=== PATIENT | male | born 1950 | race Caucasian/White ===

== ENCOUNTER 2017-10-28 22:11 | Emergency (ER) | payer MEDICARE, OTHER ==
[2017-10-28 22:22] VITALS: BP 167/92
--- NOTE | 2017-10-28 23:18 | EDM.PDOC ---
ED HPI GENERAL MEDICAL PROBLEM - General Chief Complaint: Upper Extremity Injury/Pain Stated Complaint: ARM PAIN Time Seen by Provider: 10/28/17 22:58 Source of Information: Reports: Patient History Limitations: Reports: No Limitations - History of Present Illness INITIAL COMMENTS - FREE TEXT/NARRATIVE: The patient states that he has some routine blood work drawn at the [facility] this past 10/20/2017. The blood was drawn from the proximal left forearm, volar aspect. He states that the scroll assembler appeared to be inexperienced. He states her hands shook while she was drawing the blood and that she did not allow him to apply pressure to the puncture site immediately after the blood draw. By the time he got home, there was a bruise to the area. He now presents because he noticed some discoloration over the inferolateral aspect of his left proximal forearm, as well as changes in color to the bruise on the volar aspect of his forearm. He is concerned that there might be some sort of an infection or necrosis going on. Left Arm Pain Score (Numeric/FACES): 2 - Related Data Allergies Allergy/AdvReac Type Severity Reaction Status Date / Time No Known Allergies Allergy Verified 10/28/17 23:36 Home Meds: Home Meds Pseudoephedrine [Sudogest] 30 mg PO ASDIRECTED PRN 07/08/16 [History] Hydrocodone/Acetaminophen [Hydrocodon-Acetaminophen 5-325] 1 each PO BID PRN [History] Past Medical History Genitourinary History: Reports: BPH Musculoskeletal History: Reports: Fracture (mandible) - Past Surgical History HEENT Surgical History: Reports: Tonsillectomy, Other (See Below) (Mandible plate. Hair transplant.) Social & Family History - Tobacco Use Smoking Status *Q: Never Smoker Second Hand Smoke Exposure: No - Caffeine Use Caffeine Use: Reports: Coffee - Alcohol Use Days Per Week of Alcohol Use: 0 - Recreational Drug Use Recreational Drug Use: No - Living Situation & Occupation Living situation: Reports: , Other Review of Systems - Review of Systems Review Of Systems: ROS reveals no pertinent complaints other than HPI. ED EXAM, GENERAL - Physical Exam Exam: See Below Exam Limited By: No Limitations General Appearance: Alert, WD/WN, No Apparent Distress Extremities: Other (There is an ecchymosis to the volar aspect of the proximal left forearm, with some biliverdinous changes to the periphery. This is mildly tender to palpation. There is also a subtle ecchymosis over the left proximal ulna consistent with extravasation of liquefied hematoma. Neurovascular status of the left upper extremity is intact.) Course - Vital Signs Last Recorded V/S: Last Vital Signs Temp 36.8 C 10/28/17 22:18 Pulse 95 10/28/17 22:18 Resp 20 10/28/17 22:18 BP 167/92 H 10/28/17 22:18 Pulse Ox 98 10/28/17 22:18 - Re-Assessments/Exams Free Text/Narrative Re-Assessment/Exam: 10/28/17 23:14 I reassured the patient that what he sees on his left forearm is the result of a hematoma with extravasation of liquefied blood along fascial planes due to gravity, resulting in the appearance of discoloration on the underside of his forearm. I see no signs of infection or necrosis. Departure - Departure Time of Disposition: 23:15 Disposition: Home, Self-Care 01 Condition: Good Clinical Impression: Traumatic hematoma of left forearm - Discharge Information Instructions: Hematoma, [id number] Referrals: Madhuri Paulino DO [Primary Care Provider] - Forms: ED Department Discharge Additional Instructions: You were seen in the emergency room for discoloration of your left forearm following a blood draw a week ago. On examination, it appears that you have a hematoma, the result of blood pooling under your skin. There is no sign of infection or necrosis. Unfortunately, there are no medicines that can get rid of the hematoma - it will liquefy and get absorbed on its own. Applying heat to the area MAY help to liquefy the hematoma. Follow-up with your PCP, Dr. Paulino, at the [facility], as needed. If any other problems, please do not hesitate to return to the ER.
== END 2017-10-28 23:32 | disposition home or self-care (01) ==
LOC: JD.ED 22:11
DX: S50.12XA Contusion of left forearm, initial encounter (principal); X58.XXXA Exposure to other specified factors, initial encounter
CPT/HCPCS: 99282; 99283

== ENCOUNTER 2018-11-27 11:46 | Emergency (ER) | payer MEDICARE, OTHER ==
[2018-11-27 12:00] VITALS: BP 167/102
[2018-11-27] MEDS: Sodium Chloride 0.9% 10 ML Syringe FLUSH PRN (13:53)
[2018-11-27] MEDS: Iopamidol 755 Mg/ML 200 ML Bottle IV ONE (13:53)
--- NOTE | 2018-11-27 14:22 | EDM.PDOC ---
ED HPI GENERAL MEDICAL PROBLEM - General Chief Complaint: ENT Problem Stated Complaint: CHEMO MONDAY,PAIN, THROAT PAIN CANT SWALLOW Time Seen by Provider: 11/27/18 11:59 Source of Information: Reports: Patient History Limitations: Reports: No Limitations - History of Present Illness INITIAL COMMENTS - FREE TEXT/NARRATIVE: The patient presents with difficulty swallowing. This started this morning. He had chemo for prostate cancer with mets last . This is is first round of chemo. He has no fever or chills. He has a sore throat. He has no chest pain or shortness of breath. He does have a rash to the left side of his neck. That was there a couple days ago. He can only swallow sips of water. He has no abdominal pain, nausea or vomiting. Onset: Gradual Duration: Hour(s): Location: Reports: Other (throat) Quality: Reports: Sharp Severity: Mild Improves with: Reports: None Worsens with: Reports: None Associated Symptoms: Reports: No Other Symptoms - Related Data Allergies Allergy/AdvReac Type Severity Reaction Status Date / Time No Known Allergies Allergy Verified 11/27/18 12:00 Home Meds: Home Meds Calcium Carb & Citrate/Vit D3 [Calcium + D3 ER Tablet] 1 tab PO DAILY 11/27/18 [ History] Diphenhyd/Lidocaine/Nystatin [First-Bxn Mouthwash] 5 ml PO TID PRN #237 ml 11/27 [Rx] Past Medical History - Past Health History Medical/Surgical History: Denies Medical/Surgical History Gastrointestinal History: Reports: Other (See Below) Other Gastrointestinal History: abdominal pain Genitourinary History: Reports: BPH Musculoskeletal History: Reports: Fracture Endocrine/Metabolic History: Reports: Other (See Below) Other Endocrine/Metabolic History: hair transplant Oncologic (Cancer) History: Reports: Bone, Prostate, Other (See Below) Other Oncologic History: lymphnodes - Past Surgical History HEENT Surgical History: Reports: Tonsillectomy Musculoskeletal Surgical History: Reports: Other (See Below) Other Musculoskeletal Surgeries/Procedures:: mandible fracture Social & Family History - Tobacco Use Smoking Status *Q: Never Smoker - Caffeine Use Caffeine Use: Reports: None - Recreational Drug Use Recreational Drug Use: No - Living Situation & Occupation Living situation: Reports: , Other ED ROS ENT - Review of Systems Review Of Systems: See Below Constitutional: Reports: No Symptoms HEENT: Reports: Throat Pain (trouble swallowing) Respiratory: Reports: No Symptoms Cardiovascular: Reports: No Symptoms Endocrine: Reports: No Symptoms GI/Abdominal: Reports: No Symptoms : Reports: No Symptoms Musculoskeletal: Reports: No Symptoms Skin: Reports: No Symptoms ED EXAM, ENT - Physical Exam Exam: See Below Exam Limited By: No Limitations General Appearance: Alert, No Apparent Distress Ears: Normal External Exam Nose: Normal Inspection Mouth/Throat: Other (Mild edema with erythema and multiple white patches to the back of his throat and uvula) Head: Atraumatic, Normocephalic Neck: Normal Inspection, Supple, Non-Tender Respiratory/Chest: No Respiratory Distress, Lungs Clear, Normal Breath Sounds Cardiovascular: Regular Rate, Rhythm, No Edema, No Murmur GI/Abdominal: Soft, Non-Tender, No Organomegaly, No Mass Course - Vital Signs Last Recorded V/S: Last Vital Signs Temp 98.0 F 11/27/18 11:58 Pulse 100 11/27/18 11:58 Resp 16 11/27/18 11:58 BP 167/102 H 11/27/18 11:58 Pulse Ox 95 11/27/18 11:58 - Orders/Labs/Meds Orders: Active Orders 24 hr Category Date Time Status Peripheral IV Care [RC] . DIRECTED Care 11/27/18 12:20 Active CULTURE STREP A CONFIRMATION [] Stat Lab 11/27/18 12:30 Results CULTURE THROAT [] Stat Lab 11/27/18 12:30 Results STREP SCRN A RAPID W CULT CONF [] Stat Lab 11/27/18 12:30 Results Sodium Chloride 0.9% [Normal Saline] 1,000 ml Med 11/27/18 12:30 Active IV ASDIRECTED Sodium Chloride 0.9% [Saline Flush] Med 11/27/18 12:18 Active 10 ml FLUSH ASDIRECTED PRN Peripheral IV Insertion Adult [OM.PC] Stat Oth 11/27/18 12:18 Ordered Medication Orders Sodium Chloride (Normal Saline) 1,000 mls @ 125 mls/hr IV ASDIRECTED CHLOE Last Admin: 11/27/18 14:37 Dose: 125 mls/hr Sodium Chloride (Saline Flush) 10 ml FLUSH ASDIRECTED PRN PRN Reason: Keep Vein Open Last Admin: 11/27/18 13:53 Dose: 10 ml Labs: Laboratory Tests 11/27/18 11/27/18 Range/Units 12:25 12:25 WBC 4.07 L (4.23-9.07) K/mm3 RBC 5.18 (4.63-6.08) M/mm3 Hgb 15.1 D (13.7-17.5) gm/L Hct 44.0 (40.1-51.0) % MCV 84.9 (79.0-92.2) fl MCH 29.2 (25.7-32.2) pg MCHC 34.3 (32.2-35.5) g/dl RDW Std Deviation 41.6 (35.1-43.9) fL Plt Count 130 L (163-337) K/mm3 MPV 12.0 (9.4-12.3) fl Neut % (Auto) 57.7 (34.0-67.9) % Lymph % (Auto) 34.4 (21.8-53.1) % Thomas % (Auto) 0.7 L (5.3-12.2) % Eos % (Auto) 1.0 (0.8-7.0) Baso % (Auto) 2.5 H (0.1-1.2) % Neut # (Auto) 2.35 (1.78-5.38) K/mm3 Lymph # (Auto) 1.40 (1.32-3.57) K/mm3 Thomas # (Auto) 0.03 L (0.30-0.82) K/mm3 Eos # (Auto) 0.04 (0.04-0.54) K/mm3 Baso # (Auto) 0.10 H (0.01-0.08) K/mm3 Manual Slide Review Normal smear Sodium 134 L (136-145) mEq/L Potassium 3.8 (3.5-5.1) mEq/L Chloride 101 (98-107) mEq/L Carbon Dioxide 23 (21-32) mEq/L Anion Gap 13.8 (5-15) BUN 19 H (7-18) mg/dL Creatinine 1.1 (0.7-1.3) mg/dL Est Cr Clr Drug Dosing 68.18 mL/min Estimated GFR (MDRD) > 60 (>60) mL/min BUN/Creatinine Ratio 17.3 (14-18) Glucose 105 (80-115) mg/dL Calcium 8.3 L (8.5-10.1) mg/dL Total Bilirubin 2.7 H (0.2-1.0) mg/dL AST 25 (15-37) U/L ALT 40 (16-63) U/L Alkaline Phosphatase 90 (46-116) U/L Total Protein 7.1 (6.4-8.2) g/dl Albumin 3.5 (3.4-5.0) g/dl Globulin 3.6 gm/dL Albumin/Globulin Ratio 1.0 (1-2) Meds: Medications Generic Name Dose Route Start Last Admin Trade Name Freq PRN Reason Stop Dose Admin Sodium Chloride 1,000 mls @ 125 mls/hr 11/27/18 12:30 11/27/18 14:37 Normal Saline IV 125 mls/hr ASDIRECTED CHLOE Administration Sodium Chloride 10 ml 11/27/18 12:18 11/27/18 13:53 Saline Flush FLUSH 10 ml ASDIRECTED PRN Administration Keep Vein Open Discontinued Medications Generic Name Dose Route Start Last Admin Trade Name Freq PRN Reason Stop Dose Admin Fluconazole 150 mg 11/27/18 15:13 Diflucan PO 11/27/18 15:14 ONETIME ONE Hydromorphone HCl 0.5 mg 11/27/18 14:02 11/27/18 14:37 Dilaudid IVPUSH 11/27/18 14:03 0.5 mg ONETIME ONE Administration Iopamidol 80 ml 11/27/18 13:16 11/27/18 13:53 Isovue-370 (76%) IV 11/27/18 13:17 80 ml ONETIME ONE Administration Methylprednisolone Sodium Succinate 125 mg 11/27/18 15:13 Solu-Medrol IVPUSH 11/27/18 15:14 ONETIME ONE - Re-Assessments/Exams Free Text/Narrative Re-Assessment/Exam: 11/27/18 14:30 I ordered an IV saline lock, labs and a CT of the soft tissue of his neck. 11/27/18 14:30 His WBC is a little low at 4.07. His Hgb is normal at 15.1. His Na is 134. His total bili is 2.7. I am waiting for the CT of his neck. 11/27/18 15:[address] shows degenerative change within the cervical spine. No parapharyngeal abnormality is seen. No additional abnormality is seen on CT study of the neck. His strep is negative. I do have a culture pending. 11/27/18 15:14 I will give him a dose of solu-medrol 125mg IV and diflucan 150mg PO. I called Dr Melvin his oncologist at [facility] and he was gone but I talked with his nurse and she said the incidence of mouth sores with this chemo agent he is on is 26% to 53%. She recommended magic mouthwash and a rinse. 11/27/18 15:18 Departure - Departure Time of Disposition: 15:20 Disposition: Home, Self-Care 01 Condition: Good Clinical Impression: Mouth sores - Discharge Information *PRESCRIPTION DRUG MONITORING PROGRAM REVIEWED*: Not Applicable *COPY OF PRESCRIPTION DRUG MONITORING REPORT IN PATIENT VANESSA: Not Applicable Prescriptions: Diphenhyd/Lidocaine/Nystatin [First-Bxn Mouthwash] 5 ml PO TID PRN #237 ml PRN Reason: Pain Referrals: Andrew Sotomayor PA-C [Primary Care Provider] - 1 Week Forms: ED Department Discharge Additional Instructions: Gargle and spit the magic mouthwash 5mls 3times per day as needed for mouth pain. Try to do this before meals. Mix a solution of 1tsp of backing soda, 1 tsp of salt in 8 ounces of water and gargle and spit with a small sip 3 to 4 times per day. I will call you if we need to treat you with more medicine. Please call your oncologist if you have any more problems of if you are not getting better. Please return if you are worse. - My Orders Last 24 Hours: My Active Orders 11/27/18 12:18 Sodium Chloride 0.9% [Saline Flush] 10 ml FLUSH ASDIRECTED PRN Peripheral IV Insertion Adult [OM.PC] Stat 11/27/18 12:20 Peripheral IV Care [RC] . DIRECTED 11/27/18 12:30 CULTURE STREP A CONFIRMATION [RM] Stat CULTURE THROAT [RM] Stat STREP SCRN A RAPID W CULT CONF [RM] Stat Sodium Chloride 0.9% [Normal Saline] 1,000 ml IV ASDIRECTED - Assessment/Plan Last 24 Hours: My Active Orders 11/27/18 12:18 Sodium Chloride 0.9% [Saline Flush] 10 ml FLUSH ASDIRECTED PRN Peripheral IV Insertion Adult [OM.PC] Stat 11/27/18 12:20 Peripheral IV Care [RC] . DIRECTED 11/27/18 12:30 CULTURE STREP A CONFIRMATION [RM] Stat CULTURE THROAT [RM] Stat STREP SCRN A RAPID W CULT CONF [RM] Stat Sodium Chloride 0.9% [Normal Saline] 1,000 ml IV ASDIRECTED
[2018-11-27] MEDS: Sodium Chloride 0.9% 1,000 ML IV SCH (14:37)
[2018-11-27] MEDS: HYDROmorphone 0.5 MG/0.5 ML Syringe IVPUSH ONE (14:37)
--- NOTE | 2018-11-27 15:06 | CT ---
CT neck Technique: Multiple axial sections through the neck were obtained. Intravenous contrast was utilized. Findings: Prevertebral soft tissues appear within normal limits. No parapharyngeal or prevertebral soft tissue swelling or parapharyngeal adenopathy is seen. Parotid salivary glands and submandibular salivary glands appear normal. Small normal sized lymph nodes are scattered within the neck. No neck mass is noted. Epiglottis appears normal. Degenerative change is seen within the spine with disc space narrowing at C3-C4 through C6-C7 as well as anterior osteophytes at C4-C5 through C6-C7. Posterior osteophytes are also noted at C4-C5 through C6-C7. Visualized lung apices are clear. No sclerotic change is seen within the visualized osseous structures. Small retention cyst noted within the right maxillary sinus. Other sinuses are felt to be clear. Impression: 1. Degenerative change within the cervical spine. 2. No parapharyngeal abnormality is seen. No additional abnormality is seen on CT study of the neck. Diagnostic code #2
[2018-11-27] MEDS: methylPREDNISolone Sodium Succinate 125 MG/2 ML SDV IVPUSH ONE (15:43)
[2018-11-27] MEDS: Fluconazole 150 MG Tab PO ONE (15:43)
== END 2018-11-27 15:55 | disposition home or self-care (01) ==
LOC: JD.ED 11:46
DX: K13.79 Other lesions of oral mucosa (principal); C61 Malignant neoplasm of prostate; Z79.899 Other long term (current) drug therapy
CPT/HCPCS: 36415; 70491; 80053; 85025; 87070; 87081; 87106; 87430; 96361; 96374; 96375; 99284; A9270; J1170; J2930; J7040; Q9967

== ENCOUNTER 2018-12-03 13:50 | Emergency (ER) | payer MEDICARE ==
[2018-12-03 14:01] VITALS: BP 170/88
--- NOTE | 2018-12-03 14:23 | EDM.PDOC ---
ED HPI GENERAL MEDICAL PROBLEM - General Chief Complaint: Genitourinary Problem Stated Complaint: FOLLOW UP - STILL NOT FEELING WELL/UTI/THRUSH Time Seen by Provider: 12/03/18 13:58 Source of Information: Reports: Patient History Limitations: Reports: No Limitations - History of Present Illness INITIAL COMMENTS - FREE TEXT/NARRATIVE: 68 yo M h/o prostate CA with chemo started on the comes in today for complaints of throat pain and UTI symptoms. He was last seen here 11/27/18 for thrush and was treated with Diflucan and Magic mouthwash. He says it provided temporary relief, but he still has pain and difficulty swallowing. He is mostly concerned about the UTI today. He self-caths at home and states he has had dysuria, frequency and retention between catheterizations as well as blood in the urine with catheterization. He has had UTI before and states these are similar symptoms. He denies F/C, N/V/D, abdominal pain, back pain, or GI/ complaints. No other concerns at this time. PCP is Andrew Sotomayor PA-C. Has appointment on Monday with him, but "couldn't wait any more" for the UTI and throat pain. Oncologist is Dr. Latrell Melvin at [facility]. Next chemo appointment is December 13. Bladder Pain Score (Numeric/FACES): 7 - Related Data Allergies Allergy/AdvReac Type Severity Reaction Status Date / Time No Known Allergies Allergy Verified 12/03/18 14:01 Home Meds: Home Meds Calcium Carb & Citrate/Vit D3 [Calcium + D3 ER Tablet] 1 tab PO DAILY 11/27/18 [ History] Diphenhyd/Lidocaine/Nystatin [First-Bxn Mouthwash] 5 ml PO TID PRN #237 ml 11/27 [Rx] Fluconazole [Diflucan] 100 mg PO DAILY #10 tablet 11/28/18 [Rx] Fluconazole [Diflucan] 100 mg PO DAILY #10 tablet 11/28/18 [Rx] Past Medical History - Past Health History Medical/Surgical History: Denies Medical/Surgical History Gastrointestinal History: Reports: Other (See Below) Other Gastrointestinal History: abdominal pain Genitourinary History: Reports: BPH Musculoskeletal History: Reports: Fracture Endocrine/Metabolic History: Reports: Other (See Below) Other Endocrine/Metabolic History: hair transplant Oncologic (Cancer) History: Reports: Bone, Prostate, Other (See Below) Other Oncologic History: lymphnodes - Past Surgical History HEENT Surgical History: Reports: Tonsillectomy Musculoskeletal Surgical History: Reports: Other (See Below) Other Musculoskeletal Surgeries/Procedures:: mandible fracture Social & Family History - Tobacco Use Smoking Status *Q: Never Smoker - Caffeine Use Caffeine Use: Reports: None - Recreational Drug Use Recreational Drug Use: No - Living Situation & Occupation Living situation: Reports: , Other ED ROS GENERAL - Review of Systems Review Of Systems: See Below Constitutional: Reports: No Symptoms. Denies: Fever, Chills HEENT: Reports: Throat Pain Respiratory: Reports: No Symptoms. Denies: Shortness of Breath, Cough Cardiovascular: Reports: No Symptoms Endocrine: Reports: No Symptoms GI/Abdominal: Denies: Abdominal Pain, Diarrhea, Nausea, Vomiting : Reports: Dysuria, Frequency, Hematuria, Urinary Retention. Denies: Discharge, Flank Pain, Incontinence Musculoskeletal: Reports: No Symptoms Skin: Reports: No Symptoms Neurological: Reports: No Symptoms Psychiatric: Reports: No Symptoms ED EXAM, RENAL/ - Physical Exam Exam: See Below Exam Limited By: No Limitations General Appearance: Alert, WD/WN, Mild Distress Eye Exam: Bilateral Eye: EOMI, Normal Inspection, PERRL Ears: Normal External Exam, Hearing Grossly Normal Nose: Normal Inspection, Normal Mucosa, No Blood Throat/Mouth: Normal Inspection (mild erythema), Normal Lips, Normal Teeth, Normal Gums, Normal Oropharynx (mild erythema), Normal Voice, No Airway Compromise Neck: Normal Inspection, Supple, Non-Tender, Full Range of Motion Respiratory/Chest: No Respiratory Distress, Lungs Clear, Normal Breath Sounds, No Accessory Muscle Use, Chest Non-Tender Cardiovascular: Normal Peripheral Pulses, Regular Rate, Rhythm, No Edema, No Gallop, No JVD, No Murmur, No Rub GI/Abdominal: Normal Bowel Sounds, Soft, Non-Tender, No Organomegaly, No Distention, No Abnormal Bruit, No Mass Neurological: Alert, Oriented, CN II-XII Intact, Normal Cognition, Normal Gait, Normal Reflexes, No Motor/Sensory Deficits Psychiatric: Anxious, Flat Affect Skin Exam: Warm, Dry, Intact, Normal Color, No Rash Course - Vital Signs Last Recorded V/S: Last Vital Signs Temp 96.6 F 04/29/19 13:58 Pulse 99 12/03/18 13:58 Resp 17 12/03/18 13:58 BP 170/88 H 12/03/18 13:58 Pulse Ox 97 12/03/18 13:58 - Orders/Labs/Meds Orders: Active Orders 24 hr Category Date Time Status CULTURE URINE [RM] Stat Lab 12/03/18 14:50 Received Labs: Laboratory Tests 12/03/18 Range/Units 14:50 Urine Color Yellow (Yellow) Urine Appearance Slt cloudy H (Clear) Urine pH 7.5 (5.0-8.0) Ur Specific [place] 1.020 (1.005-1.030) Urine Protein 1+ H (Negative) Urine Glucose (UA) Negative (Negative) Urine Ketones Negative (Negative) Urine Occult Blood 1+ H (Negative) Urine Nitrite Negative (Negative) Urine Bilirubin Negative (Negative) Urine Urobilinogen 0.2 (0.2-1.0) Ur Leukocyte Esterase Negative (Negative) Urine RBC 10-20 H (0-5) /hpf Urine WBC 0-5 (0-5) /hpf Ur Epithelial Cells 0-5 (0-5) /hpf Amorphous Sediment Few H (NOT SEEN) /hpf Urine Bacteria Few H (FEW) /hpf Urine Mucus Rare (FEW) /hpf Meds: Medications Discontinued Medications Generic Name Dose Route Start Last Admin Trade Name Kristine PRN Reason Stop Dose Admin Diphenhydr/Magaldrate/Simeth/Lidoca 30 ml 12/03/18 14:34 12/03/18 15:09 First-Mouthwash Blm Susp PO 12/03/18 14:35 Not Given NOW STA Diphenhydr/Magaldrate/Simeth/Lidoca 30 ml 12/03/18 14:59 12/03/18 15:08 First-Mouthwash Blm Susp PO 12/03/18 15:00 5 ml NOW STA Administration - Re-Assessments/Exams Free Text/Narrative Re-Assessment/Exam: 12/03/18 14:35 Ordered UA and urine culture Magic Mouthwash 12/03/18 15:45 U/A is not impressive for UTI. Magic Mouthwash has helped his symptoms. Will send him home with some. If urine culture comes back positive, will call him with results and start on treatment then. At this time, he is stable to go home. Departure - Departure Time of Disposition: 15:50 Disposition: Home, Self-Care 01 Condition: Good Clinical Impression: Dysuria, Throat pain - Discharge Information *PRESCRIPTION DRUG MONITORING PROGRAM REVIEWED*: Not Applicable *COPY OF PRESCRIPTION DRUG MONITORING REPORT IN PATIENT VANESSA: Not Applicable Instructions: Dysuria, Sore Throat Referrals: Andrew Sotomayor PA-C [Primary Care Provider] - Forms: ED Department Discharge Additional Instructions: You were seen in the ED today for symptoms suspicious of UTI and continuing sore throat. At this time, your urine analysis was not impressive for urinary tract infection. We did culture the urine, so will call you in a day or two if the results come back positive and will send you for an antibiotic then. Your sore throat is no longer due to the Thrush that was previously treated, as it was not seen on exam, but is likely a side effect of your chemotherapy. You were given Magic Mouthwash with some relief while here, so will send you home with some as well. You can take 1 teaspoon every 6 hours as needed for pain. Recommend follow up with your primary care provider and your oncologist. Please return to ED if new or worsening symptoms. - My Orders Last 24 Hours: My Active Orders 12/03/18 14:50 CULTURE URINE [RM] Stat - Assessment/Plan Last 24 Hours: My Active Orders 12/03/18 14:50 CULTURE URINE [RM] Stat
[2018-12-03] MEDS ORDERED: Diphenhydramine/Lidocaine/MagAl/Simethicone 119 ML Bottle PO STA ×2 (14:34→14:59)
== END 2018-12-03 16:10 | disposition home or self-care (01) ==
LOC: JD.ED 13:50
DX: R30.0 Dysuria (principal); R07.0 Pain in throat
CPT/HCPCS: 81001; 87086; 99283; A9270

== ENCOUNTER 2018-12-06 19:19 | Emergency (ER) | payer MEDICARE ==
[2018-12-06 19:36] VITALS: BP 166/95
[2018-12-06] MEDS ORDERED: Gabapentin 100 MG Cap PO ONE (19:43)
--- NOTE | 2018-12-06 19:57 | EDM.PDOC ---
ED HPI GENERAL MEDICAL PROBLEM - General Chief Complaint: Skin Complaint Stated Complaint: HANDS BURNING FROM CHEMO Time Seen by Provider: 12/06/18 19:42 Source of Information: Reports: Patient History Limitations: Reports: No Limitations - History of Present Illness INITIAL COMMENTS - FREE TEXT/NARRATIVE: 68 yo M h/o Stage 4 Prostate CA comes in to the ED with complaints of increased redness and burning on the dorsal aspect of both hands. He states he has been using "sterile technique" with his urinary self-catheterizations and is constantly using Dial Antibacterial soap on his hands. He does not use gloves for this. He saw his primary care physician, Andrew Sotomayor PA-C, who sent him to the pharmacist to get treatment, but the pharmacist did not give him anything. No other concerns at this time. Bilateral Lower Hand Pain Score (Numeric/FACES): 8 - Related Data Allergies Allergy/AdvReac Type Severity Reaction Status Date / Time No Known Allergies Allergy Verified 12/06/18 19:33 Home Meds: Home Meds Calcium Carb & Citrate/Vit D3 [Calcium + D3 ER Tablet] 1 tab PO DAILY 11/27/18 [ History] Diphenhyd/Lidocaine/Nystatin [First-Bxn Mouthwash] 5 ml PO TID PRN #237 ml 11/27 [Rx] Fluconazole [Diflucan] 100 mg PO DAILY #10 tablet 11/28/18 [Rx] Betamethasone Valerate 45 gm TP TID PRN #1 oint...g. 12/06/18 [Rx] Past Medical History - Past Health History Medical/Surgical History: Denies Medical/Surgical History HEENT History: Reports: Cataract, Impaired Vision Other HEENT History: Wears glasse Gastrointestinal History: Reports: Other (See Below) Other Gastrointestinal History: abdominal pain Genitourinary History: Reports: BPH, Other (See Below) Other Genitourinary History: Urinary retention Musculoskeletal History: Reports: Fracture Endocrine/Metabolic History: Reports: Other (See Below) Other Endocrine/Metabolic History: hair transplant Immunologic History: Reports: Immunosuppression Oncologic (Cancer) History: Reports: Bone, Prostate, Other (See Below) Other Oncologic History: lymphnodes - Past Surgical History HEENT Surgical History: Reports: Tonsillectomy Male Surgical History: Reports: TURP-Transurethral Resection of Prostate Musculoskeletal Surgical History: Reports: Other (See Below) Other Musculoskeletal Surgeries/Procedures:: mandible fracture Social & Family History - Tobacco Use Smoking Status *Q: Never Smoker - Caffeine Use Caffeine Use: Reports: None - Recreational Drug Use Recreational Drug Use: No - Living Situation & Occupation Living situation: Reports: , Other ED ROS GENERAL - Review of Systems Review Of Systems: ROS reveals no pertinent complaints other than HPI. ED EXAM, SKIN/RASH Exam: See Below Exam Limited By: No Limitations General Appearance: Alert, WD/WN, No Apparent Distress, Anxious Eye Exam: Bilateral Eye: Normal Inspection Peripheral Pulses: 3+: Radial (L), Radial (R) Extremities: Normal Range of Motion, Normal Capillary Refill, Increased Warmth ( dorsal aspect of both hands), Redness (dorsal aspect of both hands) Neurological: Alert, Oriented Skin: Warm, Dry, Intact, Erythema (dorsal aspect of both hands), Increased Warmth (dorsal aspect of both hands). No: Wound/Incision Associated features: Warmth, Tenderness, Scaling, Inflammation, Rough Course - Vital Signs Last Recorded V/S: Last Vital Signs Temp 97.2 F 12/06/18 19:34 Pulse 104 H 12/06/18 19:34 Resp 18 12/06/18 19:34 BP 166/95 H 12/06/18 19:34 Pulse Ox 97 12/06/18 19:34 - Orders/Labs/Meds Meds: Medications Discontinued Medications Generic Name Dose Route Start Last Admin Trade Name Freq PRN Reason Stop Dose Admin Betamethasone Valerate 1 gm 12/06/18 20:00 12/06/18 20:08 Valisone 0.1% Crm TOP 12/06/18 20:01 Not Given ONETIME ONE Gabapentin 100 mg 12/06/18 19:43 12/06/18 20:08 Neurontin PO 12/06/18 19:44 Not Given ONETIME ONE Departure - Departure Time of Disposition: 19:51 Disposition: Home, Self-Care 01 Condition: Good Clinical Impression: Contact dermatitis Qualifiers: Contact dermatitis type: irritant Contact dermatitis trigger: other chemical product Qualified Code(s): L24.5 - Irritant contact dermatitis due to other chemical products - Discharge Information *PRESCRIPTION DRUG MONITORING PROGRAM REVIEWED*: Not Applicable *COPY OF PRESCRIPTION DRUG MONITORING REPORT IN PATIENT VANESSA: Not Applicable Prescriptions: Betamethasone Valerate 45 gm TP TID PRN #1 oint...g. PRN Reason: contact dermatitis Instructions: Contact Dermatitis, [id number] Referrals: Andrew Sotomayor PA-C [Primary Care Provider] - Forms: ED Department Discharge Additional Instructions: You were seen in the ED for hand irritation caused by frequent washing of your hands for your self-catheterization. It is recommended you start using gloves to prevent irritation. Will send you home a prescription for ointment for the hands that you can use up to three times per day until symptoms resolve. Please follow up with your primary care provider. Please return to ED if new or worsening symptoms.
[2018-12-06] MEDS ORDERED: Betamethasone Valerate 0.1% Crm 15 GM Tube TOP ONE (20:00)
== END 2018-12-06 20:03 | disposition home or self-care (01) ==
LOC: JD.ED 19:19
DX: L24.5 Irritant contact dermatitis due to other chemical products (principal); Z79.899 Other long term (current) drug therapy
CPT/HCPCS: 99283